=== PATIENT | female | born 1970 | race Caucasian/White ===

== ENCOUNTER → 2020-05-12 17:36 | Outpatient (CLI) | payer OTHER, SELFPAY ==
--- NOTE | ~2020-05-12 | MM_ITS ---
EXAMINATION: MM screening marcelino BI w hilario HISTORY: Screening mammogram TECHNIQUE: Craniocaudal and mediolateral oblique 3-D tomosynthesis images were obtained and synthetic 2-D images were generated. CAD analysis was submitted and interpreted. COMPARISON: No prior mammogram is available for comparison at this institution. BREAST PARENCHYMAL COMPOSITION: There are scattered areas of fibroglandular density. FINDINGS: Benign-appearing circumscribed 3.5 mm opacity in the upper outer left breast, likely a ines gn intramammary lymph node. There is no evidence of suspicious mass, calcification, or architectural distortion to suggest malignancy in either breast. There has been no suspicious interval change. IMPRESSION: 1. No mammographic evidence of malignancy. 2. Recommend routine screening mammography in one year. BI-RADS Category 2: Benign finding(s). Reviewed, dictated and finalized at location A. INGIZER
== END ==
PROVIDERS: PCP Internal Medicine; Visit Provider Obstetrics & Gynecology
DX: Z12.31 Encounter for screening mammogram for malignant neoplasm of breast (principal)
CPT/HCPCS: 77063; 77067

== ENCOUNTER 2020-06-19 09:54 | Outpatient (CLI) | payer OTHER, SELFPAY ==
--- NOTE | ~2020-06-19 | CT_ITS ---
EXAMINATION: CTA chest PE protocol DATE: 06/19/2020 11:08 INDICATION: Right-sided chest pain TECHNIQUE: Computed tomography angiography (CTA) of the chest was performed with 100 mL Omnipaque-350 intravenous contrast timed to evaluate the pulmonary arteries. Coronal maximum intensity projection 3D-reconstructions were created by the technologist. Automated exposure control and iterative reconst ruction technique were employed. Exam dose: 315.65 mGy-cm total exam DLP. COMPARISON: None. FINDINGS: There is diagnostic contrast enhancement of the pulmonary arteries and no evidence of pulmo nary embolism. No thoracic aortic aneurysm or dissection. No hilar or mediastinal mass lesion or lymphadenopathy. Normal heart size. No pericardial or pleural effusion. The lungs are clear of infiltrate or consolidation. Normal morphology of the adrenal glands. Included upper abdominal structures are unremarkable other t hyman some fluid levels in the colon and small bowel, without abnormal dilatation. Included skeletal structures are unremarkable. IMPRESSION: No evidence of pulmonary embolism; normal examination Reviewed, dictated and finalized at Location A. Reviewed, dictated and finalized at location B. ODIAN SUPERVISOR
[2020-06-19 11:48] LABS: Basophils Absolute Auto 0.1 K/mm3 (0.0-0.1); Basophils Percent Auto 0.7 % (0.2-1.2); Eosinophils Absolute Auto 0.2 K/mm3 (0-0.3); Eosinophils Percent Auto 2.3 % (0-4.4); Hematocrit 43.5 % (37.0-47.0); Hemoglobin 14.9 g/dL (12.0-15.0); Immature Granulocyte Absolute 0.04 K/mm3 (0.00-0.031); Immature Granulocyte Percent A 0.5 % (0-0.5); Lymphocytes Absolute Auto 2.42 K/mm3 (0.9-3.2); Lymphocytes Percent Auto 28.1 % (18.3-44.2); Mean Corpuscular HGB Conc 34.3 g/dl (32-36); Mean Corpuscular Hemoglobin 31.5 pg (26-34); Mean Platelet Volume 10.9 fl (7.4-10.4); Monocytes Absolute Auto 0.7 K/mm3 (0.1-0.6); Monocytes Percent Auto 8.3 % (2.6-8.5); Neutrophils Absolute Auto 5.2 K/mm3 (1.3-6.7); Neutrophils Percent Auto 60.1 % (45.5-73.1); Platelet Count Result 266 k/mm3 (150-375); Red Blood Count 4.73 M/mm3 (4.2-5.4); Red Cell Distribution Width 13.6 % (11.5-14.5); White Blood Count 8.6 K/mm3 (4.5-10.0)
[2020-06-19 11:59] LABS: Alanine Aminotransferase 54 U/L (4-35); Albumin Level 4.4 g/dL (3.5-5.1); Alkaline Phosphatase 76 U/L (38-126); Anion Gap 8 mmol/L (8-16); Aspartate Amino Transferase 37 U/L (14-36); Bilirubin,Total 0.6 mg/dL (0.2-1.3); Blood Urea Nitrogen 18 mg/dL (7-17); Calcium 10.1 mg/dL (8.4-10.2); Carbon Dioxide 34 mmol/L (22-30); Chloride 97 mmol/L (98-107); Cholesterol 315 mg/dL (0-200); Estimated Glomerular Filt Rate > 60; Glucose 106 mg/dL (65-105); HDL Direct 41 mg/dL; Potassium 3.5 mmol/L (3.4-5.0); Sodium 139 mmol/L (137-145); Triglycerides 199 mg/dL (<150)
[2020-06-19 12:10] LABS: LDL Cholesterol Direct 230 mg/dL
[2020-06-19 12:36] LABS: Vitamin D 25 Hydroxy 22.8 ng/mL
[2020-06-24 08:20] LABS: Amphetamines POSITIVE; Barbiturates negative; Benzodiazepines negative; Cocaine Metabolites negative; Marijuana Metabolites negative; PCP negative
== END 2020-06-19 09:55 | disposition home or self-care (01) ==
LOC: ANHIMG 09:57
PROVIDERS: PCP Internal Medicine; Visit Provider Nurse Practitioner
DX: R07.9 Chest pain, unspecified (principal); R00.0 Tachycardia, unspecified
CPT/HCPCS: 36415; 71275; 80053; 80061; 80299; 80307; 82306; 85025; Q9967

== ENCOUNTER 2020-07-15 13:40 | Outpatient (CLI) | payer OTHER, SELFPAY ==
--- NOTE | 2020-07-15 13:45 | ECHO_ITS ---
Patient Info Name: Karissa Dudley Age: 50 years : 1970 Gender: Female Ht: 65 in Wt: 165 lbs BSA: 1.87 m2 HR: 94 bpm BP: 132 / 94 mmHg Technical Quality: Good Exam Date: 07/15/2020 2:11 PM Exam Location: [facility] Patient Status: Outpatient Admit Date: 07/15/2020 Staff Ordering Physician: Radha Blanco NP Nurse Licensed Practical: Prem Echeverria RDCS, RT Attending Provider: Radha Blanco NP Referring Physician: Francis QUINONES; Exam Type: CA echo doppler color flow Study Info Indications R07.89 - Other chest pain Complete two-dimensional, color flow and Doppler transthoracic echocardiogram is performed. Strain analysis performed. Summary 1. Complete two-dimensional, color flow and Doppler transthoracic echocardiogram is performed. 2. Left ventricular chamber dimension is normal. 3. Left ventricular systolic function is normal, estimated at 60-65%. 4. The left ventricular diastolic function is grade I diastolic dysfunction. 5. E/e' 6 is not elevated. 6. Global longitudinal strain is mildly abnormal at -16.5%. Left Ventricle E/e' 6 is not elevated. Global longitudinal strain is mildly abnormal at -16.5%. Left ventricular chamber dimension is normal. Left ventricular systolic function is normal, estimated at 60-65%. The left ventricular diastolic function is grade I diastolic dysfunction. Right Ventricle Right ventricular chamber dimension is normal. Right ventricular systolic function is normal. Left Atria Left atrial chamber dimension is normal. Right Atria Right atrial chamber dimension is normal. Aortic Valve The aortic valve is trileaflet. There is no aortic valve stenosis. There is no aortic valve regurgitation. Pulmonic Valve There is no pulmonic regurgitation. Mitral Valve There is no mitral valve stenosis. There is no mitral valve regurgitation. Tricuspid Valve There is no tricuspid valve regurgitation. Pericardium/Pleural There is no pericardial effusion. Inferior Vena Cava Normal inferior vena cava with >50% collapse upon inspiration consistent with normal right atrial pressure, 5 mmHg. Aorta The aortic root size at the sinus of Valsalva is normal. Left Ventricular Outflow Tract Name Value Normal LVOT 2D LVOT Diameter 2.1 cm LVOT Doppler LVOT Peak Gradient 3 mmHg LVOT Mean Gradient 2 mmHg LVOT VTI 16 cm LVOT VTI/AV VTI Ratio 0.8 LVOT Stroke Volume 53 ml LVOT CO 4.9 l/min LVOT CI 2.6 l/min/m2 Mitral Valve Name Value Normal MV Doppler MV Decel Aguada 428 cm/s2 MV PHT 41 ms MV Area (PHT) 5.3 c
== END 2020-07-15 13:41 | disposition home or self-care (01) ==
PROVIDERS: PCP Internal Medicine; Visit Provider Nurse Practitioner
DX: R07.9 Chest pain, unspecified (principal)
CPT/HCPCS: 93306

== ENCOUNTER → 2020-10-22 11:29 | Outpatient (CLI) | payer OTHER, SELFPAY ==
--- NOTE | ~2020-10-22 | XR_ITS ---
XR lumbar spine min 4V DATE: 10/22/2020 11:56 INDICATION: Low back pain TECHNIQUE: Standing AP, lateral, bilateral oblique and coned lateral lumbosacral views COMPARISON: None FINDINGS: There is mild levoscoliosis of the lumbar spine. No fracture or bone destruction or spondylolisthesis. No evidence of bone destruction. The included l ower thoracic and lumbar pedicles are intact. There is moderately severe degenerative disc disease at L2-3, moderate degenerative disc disease at L 3-4, L4-5 and L5-S1. There is degenerative change at the apophyseal joints with associated grade 1 anterolisthesis at L4-5 . The sacroiliac joints appear normal. IMPRESSION: Mild levoscoliosis Multilevel degenerative disc disease Grade 1 anterolisthesis at L4-5 due to degenerative change at the apophyseal joints Reviewed, dictated and finalized at location A. IMPRESSION: Mild levoscoliosis Multilevel degenerative disc disease Grade 1 anterolisthesis at L4-5 due to degenerative change at the apophyseal lesly ints
== END ==
PROVIDERS: PCP Internal Medicine; Visit Provider Nurse Practitioner
DX: M51.36 Other intervertebral disc degeneration, lumbar region (principal)
CPT/HCPCS: 72110

== ENCOUNTER 2021-02-11 16:03 | Emergency (ER) | payer OTHER, SELFPAY ==
--- NOTE | ~2021-02-11 | CT_ITS ---
EXAMINATION: CT abdomen pelvis w con DATE: 02/11/2021 17:56 INDICATION: Left lower quadrant tenderness. TECHNIQUE: Computed tomography (CT) of the abdomen and pelvis was performed with 100 mL Omnipaque 350 intravenous contrast. Automated exposure control and iterative reconstruction technique were employe d. The dose-length product was 517.33 mGy-cm. COMPARISON: chest CT 06/19/2020 FINDINGS: The visualized portions of the lung bases demonstrate minimal atelectasis. No pleural effus ion. The heart size is normal. No pericardial effusion. There is diffuse hepatic steatosis. The gallb ladder, spleen, pancreas, adrenal glands, and left kidney are normal. There is focal cortical thinnin g in right kidney. The rectum is distended and contains stool. There are no pathologically enlarged l ymph nodes. There is no free intraperitoneal fluid. There is severe lumbar spondylosis. IMPRESSION: 1. Distended rectum. 2. Diffuse hepatic steatosis. Reviewed, dictated and finalized at location A.
[2021-02-11 16:16] VITALS: BP 131/80; PULSE 76; RESP 18; TEMP 36.4; O2SAT 99
[2021-02-11 17:06] VITALS: BP 147/87; PULSE 90; RESP 18; O2SAT 98
[2021-02-11 17:11] LABS: Basophils Absolute Auto 0.1 K/mm3 (0.0-0.1); Basophils Percent Auto 0.7 % (0.2-1.2); Eosinophils Absolute Auto 0.3 K/mm3 (0-0.3); Eosinophils Percent Auto 2.4 % (0-4.4); Hematocrit 43.3 % (37.0-47.0); Hemoglobin 14.5 g/dL (12.0-15.0); Immature Granulocyte Absolute 0.03 K/mm3 (0.00-0.031); Immature Granulocyte Percent A 0.3 % (0-0.5); Lymphocytes Absolute Auto 3.76 K/mm3 (0.9-3.2); Mean Corpuscular HGB Conc 33.5 g/dl (32-36); Mean Corpuscular Hemoglobin 30.2 pg (26-34); Mean Corpuscular Volume 90.2 fl (80-100); Monocytes Percent Auto 8.4 % (2.6-8.5); Neutrophils Absolute Auto 6.3 K/mm3 (1.3-6.7); Neutrophils Percent Auto 55.2 % (45.5-73.1); Platelet Count Result 275 k/mm3 (150-375); Red Cell Distribution Width 13.2 % (11.5-14.5); White Blood Count 11.4 K/mm3 (4.5-10.0)
--- NOTE | 2021-02-11 17:11 | ED.ABDPAIN ---
HPI - Abdominal Pain General Chief Complaint: Abdominal Pain Stated Complaint: Abd Pain Time Seen by Provider: 02/11/21 16:57 Source: patient, RN notes reviewed and old records reviewed Mode of arrival: ambulatory Limitations: no limitations History of Present Illness HPI narrative: This is a 50 year old female who presents for evaluation of lower abdominal pain. Patient reports she has been dealing with intermittent lower abdominal for 2 years. She has been evaluated by gambreler helper for constipation so she is on Linzess. She states she has not really thought much about her pain until she happened to tell her PCP today about it, so she was referred to ER. Patient states this morning she had severe episode of pain that made her bend over. This pain is intermittent. She describes a feeling of having a rock in her stomach. She feels bloated. She has intermittent nausea but no vomiting. She also reports having normal bowel movement today. She denies urinary symptoms, fever or chills. She was seen by gambreler helper on Monday but she did not tell him about her pain. Related Data Home Medications Medication Instructions Recorded Confirmed fexofenadine 180 mg tablet 180 mg PO DAILY 05/31/19 02/11/21 Allergies Allergy/AdvReac Type Severity Reaction Status Date / Time cefuroxime Allergy Unknown Unknown Verified 02/09/21 14:35 erythromycin base Allergy Unknown Unknown Verified 02/09/21 14:35 CEFUROXIME AXETIL Allergy Unknown Hives / Uncoded 02/09/21 14:35 Red Face Review of Systems Review of Systems: All systems reviewed & are unremarkable except as noted in HPI and below PMFSH Past Medical History Medical History Anxiety Asthma Cervical spinal stenosis Depression GERD (gastroesophageal reflux disease) Hyperlipidemia Hypertension Migraines Mitral valve disorder Uterine polyp 03/17 Vitamin D deficiency Surgical History Surgical History H/O section X2 H/O: hysterectomy History of back surgery Family History Family History Father Patient's father is in good health Mother Diabetes mellitus Cerebrovascular accident Social History Social History Smoking status: Never smoker Second hand tobacco smoke exposure: No Alcohol intake: current Alcohol use details: Pt drinks rarely. Substance use: never Exam Const: General: no acute distress and alert Orientation/consciousness: patient oriented x3 Eyes: EOM: EOMs intact bilaterally Resp: Effort & Inspection: normal respiratory effort and no retractions Auscultation: clear to auscultation bilaterally Cardio: Rate: regular rate Rhythm: regular rhythm Heart sounds: no murmurs GI: GI Palp: Yes Soft to palpation, Yes Tenderness to palpation present (GI) and No Guarding due to palpation present (GI) Auscultation: normal bowel sounds Rectal Exam: normal sphincter tone (no fecal impaction, no stool in vault) Skin: General skin exam: normal color Rashes: no rashes Neuro: General: patient oriented x3, moves all extremities and CN's II-XI intact bilaterally Psych: Mental Status: mental status grossly normal Affect: normal affect Course Reevaluation(s) Reevaluation #1: I discussed patient Ct showing rectal distension with constipation. She understands she will need follow up with her GI and PCP. No fecal impaction found. She will be started on potassium supplementation. Date: 02/11/21 Time: 18:47 Consultations Consultation #1: I spoke with Dr Alonso about patient's visit today. I reviewed labs and CT with him. He would like patient to be in 20 meQ potassium and patient will need BMP with magnesium to be drawn on Monday Date: 02/11/21 Time: 18:46 Vital Signs Vital signs: Vital Signs Temp
[2021-02-11 17:17] LABS: Add Urine Microscopic? YES; Appearance Urine Cloudy (Clear); Bilirubin Urine Negative (Negative); Blood Urine Negative (Negative); Color Urine Yellow (Yellow); Glucose Urine UA Negative (Negative); Ketones Urine Negative (Negative); Leukocyte Esterase Ur Negative LEU/UL (Negative); Mucus Urine Rare /lpf; Nitrate Urine Negative (Negative); Protein Urine Negative (Negative); Specific Grav Ur 1.026 (1.001-1.035); Squamous Epithelial Cell Urine Moderate /hpf (Few); Urobilinogen Urine Negative mg/dL (<2.0); WBC Urine 0-3 /hpf
[2021-02-11 17:26] LABS: Alanine Aminotransferase 37 U/L (4-35); Albumin Level 4.4 g/dL (3.5-5.1); Alkaline Phosphatase 72 U/L (38-126); Anion Gap 7 mmol/L (8-16); Aspartate Amino Transferase 41 U/L (14-36); Bilirubin,Total 0.3 mg/dL (0.2-1.3); Blood Urea Nitrogen 19 mg/dL (7-17); Calcium 9.6 mg/dL (8.4-10.2); Carbon Dioxide 36 mmol/L (22-30); Chloride 98 mmol/L (98-107); Estimated CRCL calculation 102 ml/min; Estimated Glomerular Filt Rate > 60; Glucose 111 mg/dL (65-110); Lipase 112 U/L (23-300); Potassium 2.8 mmol/L (3.4-5.0); Sodium 141 mmol/L (137-145)
[2021-02-11] MEDS: LACTATED RINGERS 1,000 ML 999 ML IV CONT (17:54)
[2021-02-11] MEDS: POTASSIUM CHLORIDE 20 MEQ TABLET 40 MEQ PO (19:10)
[2021-02-11 19:30] VITALS: BP 130/76; PULSE 81; RESP 20; TEMP 36.8; O2SAT 100
== END 2021-02-11 19:35 | disposition home or self-care (01) ==
PROVIDERS: Emergency Medicine; Emergency Provider General Practice; PCP Internal Medicine
DX: K59.00 Constipation, unspecified (principal); E87.6 Hypokalemia; J45.909 Unspecified asthma, uncomplicated; K21.9 Gastro-esophageal reflux disease without esophagitis; E78.5 Hyperlipidemia, unspecified; I10 Essential (primary) hypertension; I05.9 Rheumatic mitral valve disease, unspecified; E55.9 Vitamin D deficiency, unspecified; K76.0 Fatty (change of) liver, not elsewhere classified
CPT/HCPCS: 36415; 74177; 80053; 81001; 81025; 83690; 83735; 85025; 96360; 99284; A9270; J7120; Q9967

== ENCOUNTER → 2021-06-03 02:56 | Outpatient (CLI) | payer OTHER, SELFPAY ==
[2021-06-03 14:43] LABS: Influenza Control Positive
[2021-06-03 19:47] LABS: SARS-CoV-2 RNA PCR Positive
== END ==
PROVIDERS: PCP Internal Medicine; Visit Provider Family Medicine
DX: R50.9 Fever, unspecified (principal); U07.1 COVID-19
CPT/HCPCS: 87804; C9803; U0003; U0005

== ENCOUNTER → 2021-06-24 07:54 | Outpatient (CLI) | payer OTHER, SELFPAY ==
--- NOTE | ~2021-06-24 | XR_ITS ---
EXAMINATION: XR lumbar spine 6V w bending EXAM DATE: 06/24/2021 08:21 INDICATION: Low back pain . TECHNIQUE: Lumber spine frontal, lateral, bilateral oblique projections. Coned down frontal and lat eral L5-S1 lumbar projections for interpretation. Additional lateral flexion and lateral extension p rojections obtained. Comparison is made to prior examination from 10/22/2020. FINDINGS: Mild lumbar levoscoliosis. Sacrum, sacroiliac joints, sacral arcuate lines are intact. Ther e is moderate loss of the L2-3 disc height. Mild to moderate disc disease at L4-5 with 3 mm anterolis thesis on all the lateral projections. Mild disc disease at L3-4 and L5-S1. Mild upper lumbar, modera te lower lumbar facet arthropathy. No spondylolysis suspected. No endplate erosive change or acute fr acture. Accounting for differences in technique, there is no significant interval change. IMPRESSION: 1. Mild to moderate lumbar disc disease. 2. Moderate lower lumbar facet arthropathy. 3. Grade 1 anterolisthesis L4 on L5. 4. Mild levoscoliosis. Reviewed, dictated and finalized at location A. [employer]
== END ==
DX: M51.36 Other intervertebral disc degeneration, lumbar region (principal)
CPT/HCPCS: 72114

== ENCOUNTER 2022-06-29 08:25 | Outpatient (CLI) | payer OTHER, SELFPAY ==
[2022-06-29 20:11] LABS: Anion Gap 7 mmol/L (8-16); Blood Urea Nitrogen 18 mg/dL (7-17); Calcium 9.2 mg/dL (8.4-10.2); Carbon Dioxide 37 mmol/L (22-30); Chloride 98 mmol/L (98-107); Estimated Glomerular Filt Rate > 60; Glucose 111 mg/dL (65-110); Potassium 3.3 mmol/L (3.4-5.0); Sodium 142 mmol/L (137-145)
[2022-06-30 08:48] LABS: Magnesium 2.3 mg/dL (1.6-2.3); Phosphorus 3.5 mg/dL (2.5-4.5)
== END 2022-06-29 08:26 | disposition home or self-care (01) ==
LOC: ANHGOSHLAB 08:27
PROVIDERS: PCP Internal Medicine; Visit Provider Nurse Practitioner
DX: E87.6 Hypokalemia (principal); R06.89 Other abnormalities of breathing
CPT/HCPCS: 36415; 80048; 83735; 84100; 84443

== ENCOUNTER 2023-04-19 16:02 | Outpatient (CLI) | payer OTHER, SELFPAY ==
--- NOTE | ~2023-04-19 | XR_ITS ---
EXAMINATION: XR hand RT min 3V DATE: 04/19/2023 16:18 INDICATION: Right hand pain. TECHNIQUE: 3 views of right hand were obtained. COMPARISON: None. FINDINGS: Bone alignment is normal. No fracture. There is mild osteoarthritis of first interphalangea l joint and third-fifth distal interphalangeal joints. IMPRESSION: 1. Mild polyarticular osteoarthritis. Reviewed, dictated and finalized at location E. [facility]
--- NOTE | ~2023-04-19 | XR_ITS ---
EXAMINATION: XR hand LT min 3V DATE: 04/19/2023 16:18 INDICATION: Hand pain. TECHNIQUE: 3 views of left hand were obtained. COMPARISON: None. FINDINGS: Bone alignment is normal. No fracture. There is mild osteoarthritis of first carpometacarpa l joint, fourth and 5th proximal interphalangeal joints, first interphalangeal joint, and second-fift h distal interphalangeal joints. IMPRESSION: 1. Mild polyarticular osteoarthritis. Reviewed, dictated and finalized at location E. DEALER
== END 2023-04-19 16:03 | disposition home or self-care (01) ==
PROVIDERS: PCP Internal Medicine; Visit Provider Physician Assistant Surgical
DX: M19.042 Primary osteoarthritis, left hand (principal); M19.041 Primary osteoarthritis, right hand
CPT/HCPCS: 73130

== ENCOUNTER 2023-05-17 07:57 | Outpatient (CLI) | payer OTHER, SELFPAY | END 2023-05-17 07:58 | disposition home or self-care (01) | LOC: ANHAUDASC 07:57 | PROVIDERS: PCP Internal Medicine; Visit Provider Otolaryngology | DX: H90.3 Sensorineural hearing loss, bilateral (principal) | CPT/HCPCS: 92557; 92567 ==

== ENCOUNTER 2023-05-19 09:30 | Outpatient (CLI) | payer OTHER, SELFPAY ==
[2023-05-19 12:45] LABS: Basophils Absolute Auto 0.1 K/mm3 (0.0-0.1); Basophils Percent Auto 0.8 % (0.2-1.2); Eosinophils Absolute Auto 0.2 K/mm3 (0-0.3); Hematocrit 43.6 % (37.0-47.0); Hemoglobin 14.6 g/dL (12.0-15.0); Immature Granulocyte Absolute 0.02 K/mm3 (0.00-0.031); Immature Granulocyte Percent A 0.3 % (0-0.5); Lymphocytes Absolute Auto 2.17 K/mm3 (0.9-3.2); Lymphocytes Percent Auto 32.7 % (18.3-44.2); Mean Corpuscular HGB Conc 33.5 g/dl (32-36); Mean Corpuscular Hemoglobin 30.2 pg (26-34); Mean Corpuscular Volume 90.3 fl (80-100); Mean Platelet Volume 12.1 fl (7.4-10.4); Monocytes Absolute Auto 0.6 K/mm3 (0.1-0.6); Neutrophils Absolute Auto 3.6 K/mm3 (1.3-6.7); Neutrophils Percent Auto 54.2 % (45.5-73.1); Platelet Count Result 231 k/mm3 (150-375); Red Blood Count 4.83 M/mm3 (4.2-5.4); Red Cell Distribution Width 12.5 % (11.5-14.5); White Blood Count 6.6 K/mm3 (4.5-10.0)
[2023-05-19 12:54] LABS: Alanine Aminotransferase 42 U/L (6-35); Alkaline Phosphatase 75 U/L (38-126); Anion Gap 4 mmol/L (8-16); Aspartate Amino Transferase 49 U/L (14-36); Bilirubin,Total 0.6 mg/dL (0.2-1.3); Blood Urea Nitrogen 19 mg/dL (7-17); Calcium 9.7 mg/dL (8.4-10.2); Carbon Dioxide 36 mmol/L (22-30); Chloride 102 mmol/L (98-107); Cholesterol 194 mg/dL (0-200); Estimated Glomerular Filt Rate > 60; Glucose 107 mg/dL (65-110); HDL Direct 29 mg/dL; Potassium 3.1 mmol/L (3.4-5.0); Sodium 142 mmol/L (137-145); Triglycerides 203 mg/dL (<150)
[2023-05-19 13:04] LABS: LDL Cholesterol Direct 110 mg/dL
[2023-05-19 13:14] LABS: Vitamin D 25 Hydroxy 44.6 ng/mL
== END 2023-05-19 09:31 | disposition home or self-care (01) ==
LOC: ANHGOSHLAB 09:32
PROVIDERS: PCP Internal Medicine; Visit Provider Nurse Practitioner
DX: E55.9 Vitamin D deficiency, unspecified (principal); E78.5 Hyperlipidemia, unspecified; I10 Essential (primary) hypertension
CPT/HCPCS: 36415; 80053; 80061; 82306; 85025

== ENCOUNTER 2024-01-18 10:53 | Emergency (ER) | payer OTHER, SELFPAY ==
--- NOTE | ~2024-01-18 | XR_ITS ---
EXAMINATION: XR chest 2V 01/18/2024 11:26 INDICATION: Acute cough PROCEDURE: 2 view chest COMPARISON: No prior studies for comparison. FINDINGS: The lungs are clear. The cardiomediastinal silhouette is within normal limits. There are no pleural effusions. There is no pneumothorax suspected. IMPRESSION: 1: NO ACUTE CARDIOPULMONARY DISEASE. Reviewed, dictated and finalized at location B.
--- NOTE | 2024-01-18 11:00 | ED.URI ---
HPI - URI/Sore Throat General Chief Complaint: Upper Respiratory Infection Stated Complaint: Cough/Sore Throat/Congestion Time Seen by Provider: 01/18/24 11:08 Source: patient, RN notes reviewed and old records reviewed Mode of arrival: ambulatory Limitations: no limitations History of Present Illness HPI Narrative: 53 year old female who presents to [facility] care with complaints of 2 week duration of cough which is frequent, deep with some mucous production. Patient reports that she has coughed so much her thoracic area of her back hurts and also along her rib on the sides of her chest. Patient reports that her sinus drainage is at times yellowish in color. Patient reports some facial discomfort denies any acute headaches. Patient reports that she has used her inhaler, Erin daily and also has taken some Mucinex DM without resolution of her symptom. MD elicited complaint: cough and sore throat Pertinent past history: asthma Onset (ago): week(s) (2) Pain scale (0-10): 3 Description of mucous: yellow Able to tolerate fluids by mouth: Yes Treatments prior to arrival: other (Mucinex, inhaler and also erin) Related Data Home Medications Medication Instructions Recorded Confirmed fexofenadine 180 mg tablet 180 mg PO DAILY 05/31/19 01/18/24 (Erin Allergy) zolpidem 5 mg tablet (Ambien) 5 mg PO QHS PRN Sleep 06/29/22 01/18/24 quetiapine 25 mg tablet (Seroquel) 25 mg PO QHS 08/04/22 01/18/24 dextromethorphan IR 45 1 tablet PO BID 03/28/23 01/18/24 mg-bupropion ER 105 mg biphasic tablet (Auvelity) methylphenidate HCl 40 mg 40 mg PO QHS 03/28/23 01/18/24 capsule,delayed release,ext release sprinkle (Jornay PM) Allergies Allergy/AdvReac Type Severity Reaction Status Date / Time cefuroxime Allergy Unknown Unknown Verified 01/18/24 11:01 erythromycin base Allergy Unknown Unknown Verified 01/18/24 11:01 CEFUROXIME AXETIL Allergy Unknown Hives / Uncoded 01/18/24 11:01 Red Face Review of Systems Review of Systems: CONSTITUTIONAL: Denies malaise, chills, sweats, or fever. EYES: Denies visual changes, redness, or discharge. ENT: Reports rhinorrhea, congestion, sinus pain, no otalgia and some sore throat. CARDIOVASCULAR: Denies chest pain, palpitations, or edema. RESPIRATORY: Reports acute frequent cough.? Denies dyspnea. GASTROINTESTINAL: Denies abdominal pain, nausea, vomiting, diarrhea SKIN: Denies rash or itching. MUSCULOSKELETAL: reports thoracic area back discomfort and discomfort along ribs from cough which is frequent NEUROLOGIC: Denies headache. All systems reviewed & are unremarkable except as noted in HPI and below PMFSH Past Medical History Medical History Anxiety Asthma Cervical spinal stenosis Depression GERD (gastroesophageal reflux disease) Hearing loss Hyperlipidemia Hypertension Migraines Mitral valve disorder Requires management of nerve block infusion Uterine polyp 03/17 Vitamin D deficiency Surgical History Surgical History H/O section X2 H/O: hysterectomy History of back surgery Family History Family History Father Patient's father is in good health Mother Diabetes mellitus Cerebrovascular accident Social History Social History Social History: Caffeine-none Smoking status: Never smoker Second hand tobacco smoke exposure: No Alcohol intake: current Alcohol use details: Pt drinks rarely. Substance use: never Substance use type: does not use Lack of Transportation: No Lack of Food: Never True Current Housing: I Have Housing Concerned About Future Housing: No Difficulty Paying Gas/Electric Bills: No Difficulty Paying for Meds: No Currently Unemployed: No Education: Bachelor's Degree Difficult
[2024-01-18 11:05] VITALS: BP 129/92; PULSE 105; RESP 16; TEMP 36.3; O2SAT 96
== END 2024-01-18 11:58 | disposition home or self-care (01) ==
PROVIDERS: Emergency Provider Registered Nurse; PCP Internal Medicine
DX: R05.1 Acute cough (principal); J01.40 Acute pansinusitis, unspecified; J45.909 Unspecified asthma, uncomplicated; K21.9 Gastro-esophageal reflux disease without esophagitis; E78.5 Hyperlipidemia, unspecified; I10 Essential (primary) hypertension; I34.1 Nonrheumatic mitral (valve) prolapse
CPT/HCPCS: 71046; 99213; G0463

== ENCOUNTER 2024-05-09 10:11 | Emergency (ER) | payer OTHER, SELFPAY ==
[2024-05-09 10:21] VITALS: BP 136/90; PULSE 100; RESP 16; TEMP 36.4; O2SAT 97
--- NOTE | 2024-05-09 10:24 | ED_ITS ---
HPI - Female Genitourinary General Chief complaint: Urogenital-Female Stated complaint: UTI symptoms Time Seen by Provider: 05/09/24 10:18 History of Present Illness HPI Narrative: 54-year-old female with history of depression, anxiety, hyperlipidemia, hypertension presents emergency department for dysuria, hematuria, urinary frequency and urgency. Patient states she developed dysuria, frequency and urgency a few days ago. Woke up this morning with hematuria. She is concerned she has UTI. States she gets UTIs frequently and usually gets hematuria but notes that this time seems to have increased dysuria than her baseline. She denies abdominal pain, flank pain, history of kidney stones, nausea vomiting, fever. Related Data Home Medications Medication Instructions Recorded Confirmed fexofenadine 180 mg tablet 180 mg PO DAILY 05/31/19 01/18/24 (Erin Allergy) zolpidem 5 mg tablet (Ambien) 5 mg PO QHS PRN Sleep 06/29/22 01/18/24 quetiapine 25 mg tablet (Seroquel) 25 mg PO QHS 08/04/22 01/18/24 dextromethorphan IR 45 1 tablet PO BID 03/28/23 01/18/24 mg-bupropion ER 105 mg biphasic tablet (Auvelity) methylphenidate HCl 40 mg 40 mg PO QHS 03/28/23 01/18/24 capsule,delayed release,ext release sprinkle (Jornay PM) Allergies Allergy/AdvReac Type Severity Reaction Status Date / Time cefuroxime Allergy Unknown Unknown Verified 05/09/24 10:28 erythromycin base Allergy Unknown Unknown Verified 05/09/24 10:28 CEFUROXIME AXETIL Allergy Unknown Hives / Uncoded 05/09/24 10:28 Red Face Review of Systems Review of Systems: All systems reviewed & are unremarkable except as noted in HPI and below PMFSH Past Medical History Medical History Anxiety Asthma Cervical spinal stenosis Depression GERD (gastroesophageal reflux disease) Hearing loss Hyperlipidemia Hypertension Migraines Mitral valve disorder Requires management of nerve block infusion Uterine polyp 03/17 Vitamin D deficiency Surgical History Surgical History H/O section X2 H/O: hysterectomy History of back surgery Family History Family History Father Patient's father is in good health Mother Diabetes mellitus Cerebrovascular accident Social History Social History Social History: Caffeine-none Smoking status: Never smoker Second hand tobacco smoke exposure: No Alcohol intake: current Alcohol use details: Pt drinks rarely. Substance use: never Substance use type: does not use Lack of Transportation: No Lack of Food: Never True Current Housing: I Have Housing Concerned About Future Housing: No Difficulty Paying Gas/Electric Bills: No Difficulty Paying for Meds: No Currently Unemployed: No Education: Bachelor's Degree Difficulty w/ Childcare or Family Care: No Exam Narrative: GENERAL: Well-appearing, well-nourished, and in no acute distress. HEAD: Normocephalic, atraumatic. EYES: EOMI. ENT: Nares clear, no rhinorrhea or epistaxis. Mucous membranes moist. NECK: Supple. CHEST: Clear to auscultation. No respiratory distress. HEART: Regular rate and rhythm. No murmur heard. Normal peripheral pulses. ABDOMEN: Soft, nontender, nondistended, normal active bowel sounds. No rebound, guarding or rigidity. No CVA tenderness. EXTREMITIES: Normal range of motion. No edema. SKIN: Warm, dry, no rash. NEURO: No focal deficits. Alert and oriented x3 Course Vital Signs Vital signs: Vital Signs Temperature 97.6 F 05/09/24 10:21 Pulse Rate 100 05/09/24 10:21 Respiratory Rate 16 05/09/24 10:21 Blood Pressure 136/90 05/09/24 10:21 Pulse Oximetry 97 05/09/24 10:21 Oxygen Delivery Room Air 05/09/24 10:21 Temperature 97.6 F 05/09/24 10:21 Pulse Rate 100 05/09/24 10:21 Respiratory Rate 16 05/09/24 10:21 Blood Pressure 136/90 05/09/24 10:21 Pulse Oximetry 97 05/09/24 10:21 Oxygen Delivery Room Air 05/09/24 10:21 MDM - Female Genitourinary MDM Narrative Medical decision making narrative: 54-year-old female presents to the emergency department for dysuria, hematuria, urinary frequency and urgency. See HPI for further history. Triage vitals are stable. Patient is resting comfortably in the exam bed. Abdomen is soft and nontender. No CVA tenderness. She does have urine cup at bedside which reveals gross hematuria. Shared decision making regarding workup today in need for further evaluation beyond UA. Patient denies history of kidney stones. She has no signs or symptoms other than hematuria concerning for kidney stones. I did offer to obtain lab work and a CT abdomen pelvis for further evaluation of stone or clot in the bladder. Patient politely declines this. States she normally gets hematuria with her UTIs. Her UA does show large amount hematuria 10-15 wbc's. Will start her on a course of Bactrim. given amount of hematuria, will have her follow-up with urology as well. Discussed strict ED return precautions. She is agreeable with the plan verbalized understanding. Discharged in stable condition Lab Data Labs: Lab Results 05/09/24 Range/Units 10:29 Urine Color Red H (Yellow) Urine Appearance Turbid H (Clear) Urine pH TNP Ur Specific Chinle TNP Urine Protein TNP Urine Glucose (UA) TNP Urine Ketones TNP Ur Blood (Man) TNP Urine Nitrate TNP Urine Bilirubin TNP Urine Urobilinogen TNP Leukocyte Esterase Rfl TNP Urine RBC >100 H (0-2) /hpf Urine WBC 10-15 H (0-3) /hpf Ur Squamous Epith Cells Unable to determine (Few) /hpf Urine Bacteria Unable to determine /hpf Discharge Plan Discharge Clinical Impression: UTI (urinary tract infection) Qualifiers: Urinary tract infection type: acute cystitis Hematuria presence: with hematuria Qualified Code(s): N30.01 - Acute cystitis with hematuria Patient Disposition: Home, Self-Care Condition: Stable Instructions: Antibiotic Form, Urinary Tract Infection in Women (ED), Hematuria (ED) Additional Instructions: your evaluated in the emergency department for burning with urination, blood in your urine. Your urine test shows a large amount of blood and signs of UTI. I send antibiotics to the pharmacy, please take this as directed. We discussed obtaining a further workup including lab work and a CT scan but have agreed to forego this given this is a similar to presentation to her normal UTIs. If you develop abdominal pain, flank pain, fever, nausea vomiting, please present to the emergency department immediately. Please follow-up with urology given the amount of blood in your urine. Prescriptions: New sulfamethoxazole-trimethoprim 800-160 mg tablet 1 tablet PO Q12H Qty: 14 0RF phenazopyridine [Pyridium] 200 mg tablet 200 mg PO TID Qty: 10 0RF No Action amoxicillin-pot clavulanate 875-125 mg tablet 1 tablet PO Q12H Qty: 20 0RF Rx Instructions: take with food prednisone 20 mg tablet 20 mg PO BID Qty: 10 0RF fexofenadine [Erin Allergy] 180 mg tablet 180 mg PO DAILY epinephrine [EpiPen 2-Artur] 0.3 mg/0.3 mL auto-injector 0.3 mg IM ONCE PRN (Reason: anaphylaxis) Qty: 2 0RF Rx Instructions: as a single dose zolpidem [Ambien] 5 mg tablet 5 mg PO QHS PRN (Reason: Sleep) atorvastatin 20 mg tablet 20 mg PO DAILY Qty: 90 3RF Auvelity 45-105 mg tablet,IR,delayed rel,biphasic 1 tablet PO BID Jornay PM 40 mg capsule,del rel,ext rel sprink 40 mg PO QHS sertraline 100 mg tablet 200 mg PO DAILY Qty: 180 1RF quetiapine [Seroquel] 25 mg tablet 25 mg PO QHS Rx Instructions: PRESCRIBED BY PSYCHIATRY. albuterol sulfate [Ventolin HFA] 90 mcg/actuation HFA aerosol inhaler 2 puff INHALATION Q4-6H PRN (Reason: shortness of breath or wheezing) Qty: 8.5 1RF hydrochlorothiazide 25 mg tablet 25 mg PO DAILY Qty: 90 0RF Rx Instructions: NEEDS APPOINTMENT FOR FURTHER REFILLS Follow-up/Referrals: Norbert Pickett MD [Physician] - 1 Day Joshua Alonso DO [Primary Care Provider] -
[2024-05-09] MEDS: PHENAZOPYRIDINE HCL 100 MG TABLET PO (10:34)
[2024-05-09 10:38] LABS: Appearance Urine Turbid (Clear); Color Urine Red (Yellow)
[2024-05-09 10:39] LABS: Add Urine Microscopic? YES; Bacteria Urine Unable to determine /hpf; RBC Urine >100 /hpf (0-2); Squamous Epithelial Cell Urine Unable to determine /hpf (Few)
[2024-05-09] MEDS: SULFAMETHOXAZOLE/TRIMETHOPRIM 800/160 MG DS TABLET 1 TAB PO (11:26)
[2024-05-09 11:31] VITALS: BP 130/72; PULSE 78; RESP 18; TEMP 36.7; O2SAT 100
== END 2024-05-09 11:32 | disposition home or self-care (01) ==
PROVIDERS: Emergency Medicine; Emergency Provider Physician Assistant; PCP Internal Medicine
DX: N30.01 Acute cystitis with hematuria (principal); I10 Essential (primary) hypertension; J45.909 Unspecified asthma, uncomplicated; E78.5 Hyperlipidemia, unspecified; E55.9 Vitamin D deficiency, unspecified; K21.9 Gastro-esophageal reflux disease without esophagitis; F32.A Depression, unspecified; F41.9 Anxiety disorder, unspecified; Z90.710 Acquired absence of both cervix and uterus; Z79.899 Other long term (current) drug therapy
CPT/HCPCS: 81001; 87077; 87086; 87186; 99283; A9270

== ENCOUNTER 2024-07-19 15:27 | Emergency (ER) | payer OTHER, SELFPAY ==
--- NOTE | ~2024-07-19 | XR_ITS ---
EXAMINATION: [id number] DATE: 07/19/2024 15:56 INDICATION: Fall with trauma to the inferior left ribs TECHNIQUE: A frontal inspiratory view of the chest and 3 views of the left ribs were obtained. COMPARISON: Chest radiograph dated 01/18/2024 FINDINGS: No rib fractures identified. Lungs are clear with no focal airspace opacities, pulmonary edema, pleur al effusion or pneumothorax. Cardiomediastinal silhouette is normal. Mild lumbar and upper thoracic l evocurvature with mild intervening mid to lower thoracic dextrocurvature. IMPRESSION: 1. No rib fracture or acute cardiopulmonary disease. Reviewed, dictated and finalized at location [facility]
--- NOTE | 2024-07-19 15:34 | ED_ITS ---
HPI - Fall General Chief Complaint: Fall Stated Complaint: rib pain s/p fall 07/11 Time Seen by Provider: 07/19/24 15:30 Source: patient Mode of arrival: ambulatory Limitations: no limitations History of Present Illness HPI Narrative: Patient is a 54-year-old female who presents with rib pain after fall 1 week ago. Denies any shortness of breath or chest pain. Reports pain is worse with coughing or taking a deep breath. Denies any bruising or open wounds. Related Data Home Medications ?Medication ?Instructions ?Recorded ?Confirmed ?Last Taken ?Type fexofenadine 180 mg tablet 180 mg PO DAILY 05/31/19 07/04/24 Unknown History (Erin Allergy) zolpidem 5 mg tablet (Ambien) 5 mg PO QHS PRN Sleep 06/29/22 07/04/24 Unknown History quetiapine 25 mg tablet (Seroquel) 25 mg PO QHS 08/04/22 07/04/24 Unknown History dextromethorphan IR 45 1 tablet PO BID 03/28/23 07/04/24 Unknown History mg-bupropion ER 105 mg biphasic tablet (Auvelity) Allergies Allergy/AdvReac Type Severity Reaction Status Date / Time cefuroxime Allergy Unknown Unknown Verified 07/19/24 15:46 erythromycin base Allergy Unknown Unknown Verified 07/19/24 15:46 CEFUROXIME AXETIL Allergy Unknown Hives / Uncoded 07/19/24 15:46 Red Face Review of Systems Review of Systems: All systems reviewed & are unremarkable except as noted in HPI and below Constitutional: Constitutional: Denies body ache(s), Denies chills, Denies fatigue, Denies fever(s), Denies headache(s), Denies malaise and Denies weakness Eyes: Eyes: Denies blurry vision, Denies irritation and Denies loss of vision ENT: Denies otalgia, Denies headache(s), Denies nasal discharge, Denies sinus pain and Denies sore throat Cardiovascular: Cardiovascular: Denies chest pain, Denies irregular heart rhythm and Denies dyspnea Respiratory: Respiratory: Denies dyspnea and Reports other (rib pain) Gastrointestinal: Gastrointestinal: Denies abdominal pain, Denies melena, Den ies hematochezia, Denies diarrhea, Denies nausea and Denies vomiting Musculoskeletal: Musculoskeletal: Denies back pain, Denies myalgias and Denies arthralgias Integumentary/Breasts: Skin/Breast: Denies pruritus and Denies rash Neurologic: Denies headache(s), Denies loss of vision and Denies weakness Psychiatric: Psychiatric: Reports no additional psychiatric complaints Endocrine: Endocrine: Denies fatigue PMFSH Past Medical History Medical History Hearing loss Requires management of nerve block infusion Mitral valve disorder Uterine polyp 03/17 Depression Migraines GERD (gastroesophageal reflux disease) Asthma Cervical spinal stenosis Hyperlipidemia Anxiety Hypertension Vitamin D deficiency Surgical History Surgical History History of back surgery H/O: hysterectomy H/O section X2 Family History Family History Father Patient's father is in good health Mother Diabetes mellitus Cerebrovascular accident Social History Social History Social History: Caffeine-none Smoking status: Never smoker Second hand tobacco smoke exposure: No Alcohol intake: current Alcohol use details: Pt drinks rarely. Substance use: never Substance use type: does not use Lack of Transportation: No Lack of Food: Never True Current Housing: I Have Housing Concerned About Future Housing: No Difficulty Paying Gas/Electric Bills: No Difficulty Paying for Meds: No Currently Unemployed: No Education: Bachelor's Degree Difficulty w/ Childcare or Family Care: No Comments At time of signature, agree with nursing past medical, surgical, social and family history. There is no relevant family history pertinent to the presenting complaint. Exam Const: General: cooperative, healthy appearing, comfortable, no acute distress and well nourished Nutritional Appearance: well nourished Orientation/consciousness: patient oriented x3 Limitations: no limitations HENMT: Head: normal to inspection, normocephalic and atraumatic Ears: hearing grossly normal bilaterally and external ears normal Face/Nose/Sinus: Normal external nose present, normal facial exam and face symmetric Face and sinus: normal facial exam and face symmetric Mouth: Yes lip normal Eyes: General: appearance normal, both eyes and all related structures Alignment and Position: alignment normal and position normal Periorbital: periorbital findings normal Eyelids: eyelids normal Pupils: Equal, round and reactive pupils present EOM: EOMs intact bilaterally Neck: Neck: normal visual inspection, full ROM and supple Chest: Chest palpation & inspection: normal inspection of the chest and te nderness rib left mid-clavicular line involving the 6th rib, involving the 7th rib and involving the 8th rib Resp: Effort & Inspection: normal respiratory effort and able to speak in complete sentences Auscultation: clear to auscultation bilaterally Cardio: Rate: tachycardic Rhythm: regular rhythm Heart sounds: S1 normal heart sound present and S2 normal heart sound present GI: Inspection: normal to inspection Skin: General skin exam: normal color and no rashes or lesions noted Neuro: General: patient oriented x3 and moves all extremities Cranial nerves: Yes Equal, round and reactive pupils present Speech: normal speech Gait exam (Neuro): Normal gait present Extrem: General: normal to inspection, full ROM and no edema Psych: Appearance: grossly normal and well kempt Mental Status: mental status grossly normal Speech and movement: Normal speech and movement present Affect: normal affect Attitude: cooperative Thought process: Normal thought process present Course Course Emergency Course: Patient is aware of diagnosis, understands and agrees to treatment plan. Anticipatory guidance given. Patient agrees to follow-up as directed and is aware of reasons to seek care at the emergency department. Portions of this record may have been created with voice recognition software Level of Care: Express Care Visit Vital Signs Vital signs: Reviewed MDM - Fall MDM Narrative Medical decision making narrative: Pt well hydrated appearing, in no respiratory distress, hemodynamically stable. Recommend supportive care. The patient is stable at time of discharge the clinical impression was discussed and the patient was given the opportunity to ask questions, which were addressed as completely as possible given the information available at present. Anticipatory guidance and return to care precautions were discussed and the importance of primary care follow-up was stressed and encouraged. The patient voiced understanding of the plan, indications to return, and the need for follow-up. Exam findings show no acute concerns or changes Patient is appropriate for outpatient treatment and follow-up. Differential Diagnosis Differential diagnosis: Likely other (Rib fracture, rib contusion) Medical Records Attestation: I reviewed the patient's medical records. Imaging Data Radiologist's impression: EXAMINATION: [id number] DATE: 07/19/2024 15:56 INDICATION: Fall with trauma to the inferior left ribs TECHNIQUE: A frontal inspiratory view of the chest and 3 views of the left ribs were obtained. COMPARISON: Chest radiograph dated 01/18/2024 FINDINGS: No rib fractures identified. Lungs are clear with no focal airspace opacities, pulmonary edema, pleural effusion or pneumothorax. Cardiomediastinal silhouette is normal. Mild lumbar and upper thoracic levocurvature with mild intervening mid to lower thoracic dextrocurvature. IMPRESSION: 1. No rib fracture or acute cardiopulmonary disease. Discharge Plan Discharge Clinical Impression: Contusion of rib on left side Qualifiers: Encounter type: initial encounter Qualified Code(s): S20.212A - Contusion of left front wall of thorax, initial encounter Patient Disposition: Home, Self-Care Condition: Stable Instructions: Rib Contusion (ED) Additional Instructions: Take steroids in the morning with food. Take muscle relaxers as needed for pain. They may make you sleepy so do not drive while taking them. Pain may get worse for a week and last for up to eight weeks.The most important thing is to get your pain under control. Breathing exercises will not be effective unless your pain is controlled. Take your pain relieving medications as prescribed by your doctor, and continue to speak with your primary care do ctor about maintaining your pain relief. Strenuous activities should be avoided for the first 3-4 weeks, after which you can commence physical activity as pain allows. If the pain is increasing you may be doing too much. Cough and deep breath at least 10 times per hour. Try holding a cushion firmly against the painful site when you curiel and cough to decrease the pain. Sit out of bed and keep moving as much as you feel comfortable. This will decrease the risk of developing lung complications. Patient Language: Spanish Prescriptions: New prednisone 20 mg tablet 40 mg PO DAILY 5 Days Qty: 10 0RF baclofen 10 mg tablet 10 mg PO BID Qty: 10 0RF No Action fexofenadine [Erin Allergy] 180 mg tablet 180 mg PO DAILY epinephrine [EpiPen 2-Artur] 0.3 mg/0.3 mL auto-injector 0.3 mg IM ONCE PRN (Reason: anaphylaxis) Qty: 2 0RF Rx Instructions: as a single dose zolpidem [Ambien] 5 mg tablet 5 mg PO QHS PRN (Reason: Sleep) Auvelity 45-105 mg tablet,IR,delayed rel,biphasic 1 tablet PO BID sertraline 100 mg tablet 200 mg PO DAILY Qty: 180 1RF quetiapine [Seroquel] 25 mg tablet 25 mg PO QHS Rx Instructions: PRESCRIBED BY PSYCHIATRY. albuterol sulfate [Ventolin HFA] 90 mcg/actuation HFA aerosol inhaler 2 puff INHALATION Q4-6H PRN (Reason: shortness of breath or wheezing) Qty: 8.5 1RF hydrochlorothiazide 25 mg tablet 25 mg PO DAILY Qty: 30 0RF Rx Instructions: LAST REFILL UNTIL SEEN-NEEDS APPOINTMENT Follow-up/Referrals: Joshua Alonso DO [Primary Care Provider] - 3 Days Time of Disposition: 16:12
[2024-07-19 15:41] VITALS: BP 114/78; PULSE 101; RESP 16; TEMP 36.1; O2SAT 99
== END 2024-07-19 16:32 | disposition home or self-care (01) ==
PROVIDERS: Emergency Provider Nurse Practitioner Family; PCP Internal Medicine
DX: S20.212A Contusion of left front wall of thorax, initial encounter (principal); W19.XXXA Unspecified fall, initial encounter; I10 Essential (primary) hypertension; E78.5 Hyperlipidemia, unspecified; K21.9 Gastro-esophageal reflux disease without esophagitis; J45.909 Unspecified asthma, uncomplicated; F32.A Depression, unspecified; F41.9 Anxiety disorder, unspecified; M48.02 Spinal stenosis, cervical region
CPT/HCPCS: 71101; 99213; G0463